=== PATIENT | female | born 2000 | race Caucasian/White ===

== ENCOUNTER 2024-03-20 21:13 | Emergency (ER) | payer BC ==
[~2024-03-20] VITALS: Ht 167.6 cm; Wt 122.5 kg
[2024-03-20 21:23] VITALS: BP 155/91; PULSE 90; RESP 18; TEMP 98.1; O2SAT 99
[2024-03-20] MEDS: KETOROLAC 60 MG/2 ML VIAL IM ONE (22:03)
[2024-03-20] MEDS ORDERED: IBUP-2213 PO (22:31)
[2024-03-20] MEDS ORDERED: ACET-8905 PO (22:31)
== END 2024-03-20 22:38 | disposition home or self-care (01) ==
LOC: MED 21:13
DX: L03.311 Cellulitis of abdominal wall (principal); R03.0 Elevated blood-pressure reading, without diagnosis of hypertension
CPT/HCPCS: 81025; 96372; 99283; J1885